=== PATIENT | female | born 1945 | race Asian ===

== ENCOUNTER 2020-01-13 13:00 | Emergency (ER) | payer OTHER ==
[~2020-01-13] VITALS: Ht 162.6 cm; Wt 65.8 kg
[2020-01-13 13:09] VITALS: BP_SYST 199
--- NOTE | 2020-01-13 13:20 | NUR ---
Patient left without being seen.
== END 2020-01-13 13:20 | disposition left against medical advice (07) ==
LOC: SED 13:00
DX: R42 Dizziness and giddiness (principal); Z53.21 Procedure and treatment not carried out due to patient leaving prior to being seen by health care provider